=== PATIENT | female | born 1960 | race Asian ===

== ENCOUNTER → 2017-06-13 | Outpatient (CLI) | payer BC | LOC: FIMAGING 14:48 | PROVIDERS: ATTEND Internal Medicine | DX: Z12.31 Encounter for screening mammogram for malignant neoplasm of breast (principal) | CPT/HCPCS: G0202 ==

== ENCOUNTER → 2017-12-06 | Outpatient (CLI) | payer BC | LOC: FIMAGING 14:51 | PROVIDERS: ATTEND Internal Medicine | DX: M79.641 Pain in right hand (principal); M85.441 Solitary bone cyst, right hand ==